=== PATIENT | female | born 1975 | race Two or more races ===

== ENCOUNTER 2023-04-23 12:41 | Outpatient (AMB) | payer OTHER, SELFPAY ==
--- NOTE | 2023-04-23 13:19 | MHC.OFFWIV ---
Intake Vital Signs 04/23/23 13:22 Height 5 ft 2 in Weight 180 lb BMI 32.9 BP 134/82 Blood Pressure Location Lt brachial Position Sitting Pulse 92 Pulse Source Pulse Oximeter Pulse Oximetry (%) 99 Oxygen Delivery Method Room Air Intake Visit Reasons: [employer] DRILLING- Bi ear [phone] Intake Note: Patient is here with bilateral ear pain, and for stuffiness. Patient Tobacco Use Status: Current everyday Tobacco user Allergies No Known Allergies Allergy (Verified 04/23/23 13:25) Do you need a note to return to daycare/school/sports/work: No HPI HPI Comments History of Present Illness Details This is a 47-year-old female who presents to the office today for sick visit. Patient complaining of right-sided ear pain x2 days in the setting of flu-like symptoms x1 week. Patient states she has been battling the fluid has been having nasal congestion, rhinorrhea, sore throat, headaches, and myalgias/arthralgias. She started to develop severe right ear pain a few days ago. She denies any fevers or chills. [facility] Social History Patient Tobacco Use Status: Current everyday Tobacco user Review of Systems Const All systems reviewed & are unremarkable except as noted in HPI and below Reports no additional complaints Eyes Reports no additional complaints ENT Reports no additional complaints Card Reports no additional complaints Resp Reports no additional complaints GI Reports no additional complaints Reports no additional complaints Musc Reports no additional complaints Skin/Breast Reports system reviewed and no additional complaints, except as documented Neuro Reports no additional complaints Psych Reports no additional complaints Endo Reports no additional complaints Nigel/Lymph Reports no additional complaints Aller/Immun Reports no additional complaints Physical Exam Vital Signs: Last Vital Signs Pulse 92 04/23/23 13:22 BP 134/82 04/23/23 13:22 Pulse Ox 99 04/23/23 13:22 Oxygen Delivery Method Room Air 04/23/23 13:22 BMI result Body Mass Index 32.9 Const Other: Vital signs reviewed. Constitutional: Non-toxic appearing. No acute distress. Well-developed and well-nourished. HEENT: Normocephalic and atraumatic. Right tympanic membrane is erythematous, edematous, and bulging. Left tympanic membrane is slightly erythematous. External auditory canals without erythema or edema bilaterally. Moist mucous membranes. No pharyngeal erythema or exudates. No postauricular tenderness, swelling, or erythema. Skin: Warm and dry. No rashes or lesions noted. Neck: Full and painless range of motion. No cervical lymphadenopathy. Cardio: Regular rate. No lower extremity edema. No JVD. Pulmonary: No respiratory distress. No accessory muscle usage. Gastrointestinal: Soft, nontender, and nondistended in all 4 quadrants. Genitourinary: No CVA tenderness. Musculoskeletal: Normal range of motion in joints throughout the body. No deformity or other signs of injury. Neuro: Alert and oriented x4. Cranial nerves 2-12 grossly intact. No focal deficits appreciated. Psych: Normal mood and affect. Assessment & Plan Assessment & Plan (1) Acute otitis media with effusion of right ear: Code(s): H65.191 - Other acute nonsuppurative otitis media, right ear Plan: This is a 47-year-old female presenting to the office complaining of severe right ear pain in the setting of flu-like symptoms. On physical examination, her right tympanic membrane is erythematous, edematous, and bulging. There is no postauricular swelling, tenderness, or erythema. History and physical most consistent with an acute otitis media of the right ear in the setting of viral URI. Patient was sent home on p.o. amoxicillin clavulanate twice daily times 10 days.Recommended symptomatic management including rest, increased fluids, advil/tylenol for pain/fever, and over the counter throat lozenges/decongestants. Patient advised to follow up here or go to the emergency room for worsening/persistent symptoms. She was advised to follow-up here or proceed to the emergency room for persistent/worsening symptoms. Patient verbalizes her understanding and she is in agreement with the plan. Medications: New amoxicillin-pot clavulanate 875-125 mg 1 tab PO BID 20 tabs 0RF fluticasone propionate 50 mcg/actuation administer into each nostril 1 spray intranasal DAILY 16 grams 0RF Coding Level of Care Code New Pt Level 3 (16366) Diagnoses Acute otitis media with effusion of right ear H65.191
[2023-04-23 13:22] VITALS: BP 134/82; PULSE 92; O2SAT 99; BMI 32.9
== END 2023-04-23 13:45 | disposition home or self-care (01) ==
PROVIDERS: Visit Provider Physician Assistant Medical
DX: H65.191 Other acute nonsuppurative otitis media, right ear (principal)
CPT/HCPCS: 99203